=== PATIENT | male | born 1945 | race Caucasian/White ===

== ENCOUNTER 2022-05-12 10:02 | Emergency (ER) | payer MEDICARE, OTHER ==
[~2022-05-12] VITALS: Ht 177.8 cm; Wt 81.6 kg
[2022-05-12] MEDS ORDERED: IBUPROFEN 800 MG TAB PO SCH (12:00)
[2022-05-12 12:16] VITALS: BP 147/53
[2022-05-12 12:29] LABS: BASOPHILS % (AUTO) 0.5 % (0.0-5.0); EOSINOPHILS % (AUTO) 0.7 % (0.0-8.0); HEMATOCRIT 45.2 % (42-54); LYMPHOCYTES % (AUTO) 17.4 % (21.0-51.0); MEAN CORPUSCULAR HEMOGLOBIN 27.8 pg (27.0-33.0); MEAN CORPUSCULAR HGB CONC 32.5 g/dL (32.0-36.0); MEAN CORPUSCULAR VOLUME 85.4 fL (79-99); MONOCYTES % (AUTO) 16.1 % (3.0-13.0); NEUTROPHILS % (AUTO) 64.9 % (40.0-77.0); PLATELET COUNT (AUTO) 145 K/uL (130-400); RED BLOOD CELL COUNT(AUTO) 5.29 MIL/uL (4.50-6.20); RED CELL DISTRIBUTION WIDTH 12.9 % (11.0-15.5); WHITE BLOOD COUNT (AUTO) 5.6 K/uL (4.8-10.8)
[2022-05-12 12:48] LABS: ALBUMIN 3.9 g/dL (3.5-5.0); CREATININE 1.3 mg/dL (0.5-1.5); POTASSIUM 4.2 mmol/L (3.5-5.1); TOTAL PROTEIN, SERUM 7.1 g/dL (6.0-8.3)
[2022-05-12] MEDS ORDERED: NIRM1TAB PO (13:10)
[2022-05-12] MEDS ORDERED: IBUP-1493 PO (13:10)
== END 2022-05-12 13:26 | disposition home or self-care (01) ==
LOC: EDH 10:02
DX: U07.1 COVID-19 (principal); J10.1 Influenza due to other identified influenza virus with other respiratory manifestations
CPT/HCPCS: 99284; 71045; 87635; 80053; 85025; 87804 ×2; 83605; 36415; 93005; C9803